=== PATIENT | male | born 1950 | race Caucasian/White ===

== ENCOUNTER → 2020-01-13 | Outpatient (CLI) | payer MEDICARE, BC, OTHER | LOC: COL.RAD 08:21 | DX: C61 Malignant neoplasm of prostate (principal); K57.30 Diverticulosis of large intestine without perforation or abscess without bleeding | CPT/HCPCS: A9503; Q9967 ==

== ENCOUNTER 2022-06-14 14:57 | Inpatient (IN) | payer MEDICARE, BC, OTHER ==
[~2022-06-14] VITALS: Ht 170.2 cm; Wt 86.2 kg
[~2022-06-14 14:57] MED LIST: NORVASC 5MG5 MG/TAB PO; PRINIVIL40 MG PO; TEGRETOL 2200 MG/TA1 PO; [UNRECOGNIZED DRUG - OTHER] PO
[2022-06-14 19:21] LABS: AMORPHOUS CRYSTAL Present (NOT PRESENT); MUCOUS Present (NOT PRESENT); SQUAMOUS EPITHELIAL 0-2 /hpf (0-10); URINE APPEARANCE Cloudy (CLEAR/HAZY); URINE BACTERIA None Seen /hpf (NONE SEEN); URINE COLOR Amber (YELLOW); URINE PROTEIN(semi-quant) 2+ (NEGATIVE)
[2022-06-14 19:22] LABS: COLLECTION METHOD CLEAN CATCH; URINE BLOOD 1+ (NEGATIVE); URINE GLUCOSE Negative (NEGATIVE); URINE KETONE Negative (NEGATIVE); URINE NITRATE Negative (NEGATIVE); URINE UROBILINOGEN 0.2 E.U/dL (0.2-1.0)
[2022-06-14 19:46] VITALS: BP 124/78; PULSE 98; TEMP 99
--- NOTE | 2022-06-14 20:30 | NUR ---
Patient A/O, head to toe assessment done, see shift assessemt, with NG tube to LIS draining greenish gastric fluid, denies the need for pain meds at this time, restarted IV to his left forearm by greenhouse staff, hooked back LR at 100 cc/hr,denies further needs, call light and personal items within reach, will continue to monitor.
[2022-06-14 23:11] VITALS: BP 131/83; PULSE 88; TEMP 98.3
[2022-06-15 03:41] VITALS: BP 134/83; PULSE 89; TEMP 99.8
--- NOTE | 2022-06-15 06:40 | NUR ---
Patient had an uneventful night, denies need at this time, patient's called and updated her.
[2022-06-15 07:13] LABS: BASO % 0.2 % (0.0-2.0); EOS # 0.2 K/mm3 (0.0-0.7); EOS % 1.1 % (0.0-4.0); HEMOGLOBIN 11.4 g/dl (13.5-18.0); LYMPH # 0.4 K/mm3 (1.2-3.4); LYMPH % 2.5 % (20.0-51.0); MEAN CELL VOLUME 92 fl (80.0-100.0); MEAN CORPUSCULAR HEMOGLOBIN 30 pg (27-31); MEAN CORPUSCULAR HGB CONC 33 g/dl (33.0-37.0); MONO # 1.4 K/mm3 (0.1-0.6); MONO % 8.5 % (1.7-9.3); PLATELET COUNT 252 K/mm3 (130-400); RED BLOOD COUNT 3.79 M/mm3 (4.20-5.60); REDCELL DISTRIBUTION WIDTH-CV 12.7 % (11.5-14.5)
[2022-06-15 07:17] LABS: HEMATOCRIT 34.9 % (42.0-52.0)
[2022-06-15 07:28] LABS: CALCIUM 8.8 mg/dL (8.4-10.2); CREATININE, serum 2.46 mg/dL (0.72-1.25); POTASSIUM 3.9 mmol/L (3.5-4.5)
[2022-06-15 08:00] VITALS: BP 132/78; PULSE 82; TEMP 98.2
--- NOTE | 2022-06-15 08:15 | NUR ---
PATIENT AWAKE AND ALERT IN BED. ASSESSMENT COMPLETED. NG TUBE TO LIS WITH DARK GREEN OUTPUT. IV FLUIDS INFUSING. PATIETN ASSISTED BY THIS RN AND PCT TO CLEAN UP, LINEN CHANGED. PATIENT STANDBY ASSIST BACK TO BED. BED ALARM ON, CALL LIGHT WITHIN REACH.
--- NOTE | 2022-06-15 10:28 | NUR ---
SW met with the patient to discuss discharge plan. The patient lives in [place] with his , Polly (ph#[phone]), their son (Johnny), [id number] (Jess), and grandson. He reports independence with ADLs and does not have any DME. The patient's PCP is Dr. Fabio Waggoner and he receives his medications [facility]. The patient does not have a DPOA-HC in EMR, but he states that he does have one completed and that it designates his . The patient plans to return home with his family upon discharge. No additional needs at this time. *Discharge plan: home with family*
[2022-06-15 12:00] VITALS: BP 121/87; PULSE 87; TEMP 98.5
[2022-06-15 15:05] LABS: CREATININE, serum 2.54 mg/dL (0.72-1.25)
[2022-06-15 15:15] LABS: FRACTIONAL EXCRETION OF NA+ 0.9 %
[2022-06-15 15:43] VITALS: BP 113/67; PULSE 86; TEMP 99.1
[2022-06-15 19:05] VITALS: BP 136/79; PULSE 82; TEMP 99.1
--- NOTE | 2022-06-15 20:48 | NUR ---
Patient assessed at this time, head to toe assessment done, see shift assessment, denies pain, still with NG to LIS, denies nausea or vomiting, denies further needs, call light and personal items within reach, will continue to monitor.
[2022-06-15 23:36] VITALS: BP 139/80; PULSE 77; TEMP 99.3
--- NOTE | 2022-06-16 01:34 | NUR ---
Patient had a small BM, denies pain at this time.
[2022-06-16 04:11] VITALS: BP 142/81; PULSE 75; TEMP 99.7
[2022-06-16 07:07] VITALS: BP 141/82; PULSE 72; TEMP 98.3
[2022-06-16 07:11] LABS: CALCIUM 8.6 mg/dL (8.4-10.2); CREATININE, serum 2.28 mg/dL (0.72-1.25); POTASSIUM 3.9 mmol/L (3.5-4.5)
[2022-06-16 07:17] LABS: HEMOGLOBIN 11.2 g/dl (13.5-18.0); MEAN CELL VOLUME 90 fl (80.0-100.0); MEAN CORPUSCULAR HEMOGLOBIN 30 pg (27-31); MEAN CORPUSCULAR HGB CONC 34 g/dl (33.0-37.0); MEAN PLATELET VOLUME 9.1 fl (7.4-10.4); PLATELET COUNT 285 K/mm3 (130-400); REDCELL DISTRIBUTION WIDTH-CV 12.6 % (11.5-14.5)
[2022-06-16 07:42] LABS: HEMATOCRIT 33.3 % (42.0-52.0)
[2022-06-16 08:23] LABS: BAND 5 % (0-10); LYMPHOCYTE 3 % (20.0-51.0); NEUTROPHILS 87 % (42.0-75.2); PLATELET ESTIMATE NORMAL (NORMAL)
--- NOTE | 2022-06-16 12:00 | NUR ---
UPON ENTERING ROOM, PATIENT NGTUBE ALREADY CLAMPED BY PROVIDER. WILL MONITOR PATIENT FOR N,V AND PAIN.
[2022-06-16 12:17] VITALS: BP 160/83; PULSE 74; TEMP 98.1
[2022-06-16 16:06] VITALS: BP 150/85; PULSE 83; TEMP 98.4
--- NOTE | 2022-06-16 18:32 | NUR ---
PER DR MCCLURE PATIENTS NG TUBE CAN BE REMOVED.
--- NOTE | 2022-06-16 18:45 | NUR ---
PATIENTS NGTUBE PULLED. PATIENT TOLERATED WELL.
[2022-06-16 19:48] VITALS: BP 135/77; PULSE 75; TEMP 98.3
--- NOTE | 2022-06-16 22:15 | NUR ---
Patient assessed at this time, A/O, denies pain or discomfort, denies nausea, has been tolerating his clear liquid diet, call light and personal items within reach, will continue to monitor.
[2022-06-16 23:51] VITALS: BP 140/75; PULSE 72; TEMP 98.4
--- NOTE | 2022-06-17 02:26 | NUR ---
Patient resting in bed, eyes closed, respirations even and unlabored.
[2022-06-17 03:53] VITALS: BP 149/86; PULSE 69; TEMP 98.3
[2022-06-17 06:48] LABS: HEMOGLOBIN 11.2 g/dl (13.5-18.0); MEAN CELL VOLUME 90 fl (80.0-100.0); MEAN CORPUSCULAR HEMOGLOBIN 30 pg (27-31); MEAN CORPUSCULAR HGB CONC 33 g/dl (33.0-37.0); MEAN PLATELET VOLUME 8.9 fl (7.4-10.4); PLATELET COUNT 308 K/mm3 (130-400); RED BLOOD COUNT 3.72 M/mm3 (4.20-5.60); REDCELL DISTRIBUTION WIDTH-CV 12.8 % (11.5-14.5)
[2022-06-17 06:49] LABS: HEMATOCRIT 33.5 % (42.0-52.0)
--- NOTE | 2022-06-17 07:05 | NUR ---
Patient had an uneventful night, denies nausea or vomiting, report given to INOCENCIA Heard.
[2022-06-17 07:07] LABS: CALCIUM 8.3 mg/dL (8.4-10.2); CREATININE, serum 1.74 mg/dL (0.72-1.25); POTASSIUM 3.6 mmol/L (3.5-4.5)
[2022-06-17 07:15] LABS: BAND 5 % (0-10); EOSINOPHIL 1 % (0-4); LYMPHOCYTE 5 % (20.0-51.0); NEUTROPHILS 77 % (42.0-75.2); PLATELET ESTIMATE NORMAL (NORMAL)
[2022-06-17 07:28] VITALS: BP 159/85; PULSE 73; TEMP 97.6
[2022-06-17 11:25] VITALS: BP 166/87; PULSE 75; TEMP 98.8
[2022-06-17 16:05] VITALS: BP 141/85; PULSE 71; TEMP 98.6
[2022-06-17 19:14] VITALS: BP 141/70; PULSE 73; TEMP 98.5
--- NOTE | 2022-06-17 20:54 | NUR ---
PT RESTING IN BED. CHEERFUL. DENIES PAIN OR NAUSEA. NO NEEDS AT THIS TIME.
[2022-06-17 23:42] VITALS: BP 154/83; PULSE 72; TEMP 98.7
--- NOTE | 2022-06-17 23:44 | NUR ---
PT SITTING ON SIDE OF BED DOING SUDOKO. VERY TALKATIVE. DENIES PAIN. NO NEEDS AT THSI TIME.
[2022-06-18 04:20] VITALS: BP 155/82; PULSE 66; TEMP 98
[2022-06-18 06:40] LABS: HEMOGLOBIN 10.7 g/dl (13.5-18.0); MEAN CELL VOLUME 91 fl (80.0-100.0); MEAN CORPUSCULAR HEMOGLOBIN 30 pg (27-31); MEAN CORPUSCULAR HGB CONC 33 g/dl (33.0-37.0); PLATELET COUNT 350 K/mm3 (130-400); RED BLOOD COUNT 3.58 M/mm3 (4.20-5.60); REDCELL DISTRIBUTION WIDTH-CV 12.7 % (11.5-14.5)
[2022-06-18 06:42] LABS: HEMATOCRIT 32.4 % (42.0-52.0)
[2022-06-18 07:10] LABS: BAND 2 % (0-10); EOSINOPHIL 3 % (0-4); LYMPHOCYTE 8 % (20.0-51.0); NEUTROPHILS 72 % (42.0-75.2)
[2022-06-18 07:11] LABS: PLATELET ESTIMATE NORMAL (NORMAL)
[2022-06-18 07:20] VITALS: BP 162/85; PULSE 68; TEMP 98.2
--- NOTE | 2022-06-18 07:20 | NUR ---
REPORT FROM FORK OPERATOR, BRET.
--- NOTE | 2022-06-18 07:22 | NUR ---
PATIENT ALERT AND ORIENTED. PATIENT HERE FOR DIVERTICULITIS/SBO. PATIENT DENIES ANY PAIN. BOWEL SOUNDS ACTIVE. PATIENT REPORTS BM THIS MORNING. TOLERATING LOW FIBER DIET. LR RUNNING IN IV TO RIGHT FA. PATIENT UP TO SIDE UP BED EATING BREAKFAST. CALL LIGHT IN REACH.
[2022-06-18 08:16] LABS: CALCIUM 8.4 mg/dL (8.4-10.2); CREATININE, serum 1.43 mg/dL (0.72-1.25); POTASSIUM 3.8 mmol/L (3.5-4.5)
[2022-06-18] MEDS ORDERED: AMOXICILLIN/CLA1 TA1 PO (08:27)
--- NOTE | 2022-06-18 09:33 | NUR ---
National Sales Representative met with patient to present and review IM form. Patient verbalized understanding and provided signature. SW placed form in chart. Patient declined copy.
--- NOTE | 2022-06-18 10:54 | NUR ---
DISCHARGE INSTRUCTIONS PROVIDED. PATIENT EDUCATION GIVEN. FOLLOW UP APPOINTMENTS DISCUSSED. MEDICATIONS REVIEWED. PATIENT EDUCATED ON NEW LOW FIBER DIET, NEW MEDS, AND DISCONTINUED MEDS. PATIENT DENIES HAVING ANY QUESTIONS OR CONCERNS. PATIENT WAITING FOR FAMILY TO ARRIVE.
--- NOTE | 2022-06-18 11:26 | NUR ---
PATIENT ESCORTED OUT WITH BELONGINGS
== END 2022-06-18 11:28 | disposition home or self-care (01) | DRG 389 ==
LOC: SURG 14:57
PROVIDERS: Physician Assistant; ADMIT Hospitalist
DX: K56.0 Paralytic ileus (principal); K57.20 Diverticulitis of large intestine with perforation and abscess without bleeding; N17.9 Acute kidney failure, unspecified; D64.9 Anemia, unspecified; G50.0 Trigeminal neuralgia; K21.9 Gastro-esophageal reflux disease without esophagitis; H91.90 Unspecified hearing loss, unspecified ear; I10 Essential (primary) hypertension; Z90.79 Acquired absence of other genital organ(s); Z85.46 Personal history of malignant neoplasm of prostate; Z87.891 Personal history of nicotine dependence; Z85.828 Personal history of other malignant neoplasm of skin; Z90.89 Acquired absence of other organs
CPT/HCPCS: J2543; J7120